=== PATIENT | male | born 1990 | race Caucasian/White ===

== ENCOUNTER 2018-01-07 11:17 | Emergency (ER) | payer OTHER ==
[2018-01-07] MEDS: LIDOCAINE 2% MDV 20 ML VIAL SC (11:37)
== END 2018-01-07 12:10 | disposition home or self-care (01) ==
LOC: M ED 11:17
DX: S61.214A Laceration without foreign body of right ring finger without damage to nail, initial encounter (principal); S61.216A Laceration without foreign body of right little finger without damage to nail, initial encounter; W26.8XXA Contact with other sharp object(s), not elsewhere classified, initial encounter; Y92.89 Other specified places as the place of occurrence of the external cause; Y99.0 Civilian activity done for income or pay; F17.210 Nicotine dependence, cigarettes, uncomplicated
CPT/HCPCS: 12001